=== PATIENT | male | born 1960 | race Caucasian/White ===

== ENCOUNTER 2017-01-23 10:55 | Observation (INO) | payer OTHER ==
[~2017-01-23] VITALS: Ht 172.7 cm; Wt 77.1 kg
[2017-01-23 12:29] LABS: HEMOGLOBIN 16.8 gm/dl (14.0-17.5); RED BLOOD COUNT 5.24 M/UL (4.20-5.50)
[2017-01-23 12:40] LABS: BUN/CREATININE RATIO 17 (0-10)
[2017-01-24] MEDS ORDERED: ASPIR 8181 MG PO (01:45)
[2017-01-24] MEDS ORDERED: LIPITOR TAB 2020 MG PO (01:46)
[2017-01-24] MEDS ORDERED: NORVASC10 MG PO (01:46)
[2017-01-24] MEDS ORDERED: LISINOPRIL10 MG PO (01:46)
[2017-01-24] MEDS ORDERED: LOPRESSOR 50 MG50 MG PO (01:46)
[2017-01-24] MEDS ORDERED: FENOFIBRATE134 MG PO (01:47)
[2017-01-24] MEDS ORDERED: PROZAC20 MG PO (01:48)
[2017-01-24] MEDS ORDERED: REMERON45 MG PO (01:48)
[2017-01-24 06:20] LABS: BUN/CREATININE RATIO 12 (0-10); HEMOGLOBIN 13.6 gm/dl (14.0-17.5); RED BLOOD COUNT 4.22 M/UL (4.20-5.50)
[2017-01-25] MEDS ORDERED: FLAGYL500 MG PO (13:04)
[2017-01-25] MEDS ORDERED: LORTAB 5-325 M1 EACH PO (13:04)
[2017-01-25] MEDS ORDERED: LEVAQUIN500 MG PO (13:05)
== END 2017-01-25 13:36 | disposition home or self-care (01) ==
LOC: ER1 10:55 → ZEROF 14:30 → M/S 20:21 → ZEROF 01-25 15:50
PROVIDERS: Emergency Medicine; ADMIT Internal Medicine
DX: K57.30 Diverticulosis of large intestine without perforation or abscess without bleeding (principal); D72.829 Elevated white blood cell count, unspecified; E87.2 Acidosis; I10 Essential (primary) hypertension; E78.5 Hyperlipidemia, unspecified; G47.00 Insomnia, unspecified; I25.10 Atherosclerotic heart disease of native coronary artery without angina pectoris; N20.0 Calculus of kidney; F17.210 Nicotine dependence, cigarettes, uncomplicated; Z79.82 Long term (current) use of aspirin; Z79.899 Other long term (current) drug therapy; Z98.61 Coronary angioplasty status; Z80.0 Family history of malignant neoplasm of digestive organs
CPT/HCPCS: 36415; 71010; 80048; 80053; 81001; 83690; 83735; 84484; 85025; 85027; 85610; 85730; 87086; 93005; 96361; 96365; 96366; 96375; 96376; 99285; G0378; J1956; J2270; J2405; J7030; J7050

== ENCOUNTER → 2022-03-25 | Outpatient (CLI) | payer OTHER ==
[~2022-03-25] MED LIST: ASPIR 8181 MG PO; FENOFIBRATE134 MG PO; FLAGYL500 MG PO; LEVAQUIN500 MG PO; LIPITOR TAB 2020 MG PO; LISINOPRIL10 MG PO; LOPRESSOR 50 MG50 MG PO; LORTAB 5-325 M1 EACH PO; NORVASC10 MG PO; PROZAC20 MG PO; REMERON45 MG PO
[2022-03-25 06:56] LABS: HEMOGLOBIN 15.2 gm/dl (14.0-17.5); RED BLOOD COUNT 4.8 M/UL (4.20-5.50); WHITE BLOOD COUNT 10.1 K/UL (4.5-11.0)
[2022-03-25 07:46] LABS: BUN/CREATININE RATIO 25 (0-10)
== END ==
LOC: LAB 06:02
PROVIDERS: Nurse Practitioner
DX: I25.10 Atherosclerotic heart disease of native coronary artery without angina pectoris (principal)
CPT/HCPCS: 36415; 80053; 80061; 85025